=== PATIENT | female | born 1985 | race Caucasian/White ===

== ENCOUNTER 2017-04-15 08:40 | Inpatient (IN) | payer OTHER ==
[~2017-04-15] VITALS: Ht 162.6 cm; Wt 92.1 kg
[2017-04-15] MEDS ORDERED: PRENATAL TABLE1 EAC2 PO (09:12)
[2017-04-15 09:57] LABS: ABSOLUTE BASOPHIL COUNT 0 /CUMM (0.0-0.2); ABSOLUTE EOSINOPHIL COUNT 0 /CUMM (0.0-0.7); ABSOLUTE GRANULOCYTE CT 8.9 /CUMM (1.4-6.5); ABSOLUTE LYMPH COUNT 1.4 /CUMM (1.2-3.4); ABSOLUTE MONOCYTE COUNT 0.6 /CUMM (0.10-0.60); BASOPHIL % 0.2 % (0.0-2.0); EOSINOPHIL % 0.3 % (0-5); GRANULOCYTE % 81.7 % (42.2-75.2); HEMATOCRIT 30.4 % (37-47); MEAN CORPUSCULAR HGB 25.1 PG (27.0-31.0); MEAN CORPUSCULAR HGB CONC 32.4 G/DL (33.0-37.0); MEAN CORPUSCULAR VOLUME 77.5 FL (81.0-99.0); MEAN PLATELET VOLUME 7.7 FL (7.4-10.4); PLATELET COUNT 317 /CUMM (130-400); RBC DISTRIBUTION WIDTH 15.1 % (11.5-14.5); RED BLOOD CELL CT 3.92 /CUMM (4.20-5.40); WHITE BLOOD CELL COUNT 10.9 /CUMM (4.8-10.8)
--- NOTE | 2017-04-15 20:17 | History & Physical ---
General Information and HPI MD Statement: I have seen and personally examined JING BUSTOS and documented this H&P. The patient is a 31 year old female at [40] weeks and [1] days gestation who presented with a chief complaint of [postdates]. Source of Information: police History of Present Illness: 31yo lmp 07/08/17 EDC 04/14/17 at 40w1d for IOL. Poor Miller score needs cervical ripening. care complete and remarkable for +GBS colonization and PCN allergy. 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 EENTM: Reports: no symptoms. Cardiovascular: Reports: no symptoms. Respiratory: Reports: no symptoms. GI: Reports: no symptoms. Genitourinary: Reports: no symptoms. Musculoskeletal: Reports: no symptoms. Skin: Reports: no symptoms. Neurological/Psychological: Reports: no symptoms. Hematologic/Endocrine: Reports: no symptoms. Immunologic/Allergic: Reports: no symptoms. All Other Systems: Reviewed and Negative Exam & Diagnostic Data Last 24 Hrs of Vital Signs/I&O Intake & Output 04/15 1600 / 0800 04/15 0000 Intake Total Output Total Balance Patient 203 lb Weight Obstetric Exam Wgt Gained During : 35 Pelvimetry: gynecoid Dilation (cm): 0 Effacement (%): 0 Station: 0 Membranes: intact Fluid: unknown Fundal Height (cm): 40 Multiple Gestation? No Contractions: none Infant #1 - FHR Baseline: 140 Category: 1 Estimated Weight: 6.5 Presentation: cephalic Patient for Induction? Yes Miller Score Miller Score Response Value Cervix Position: posterior 0 Cervix Consistency: medium 1 Cervix Effacement: 0-30% 0 Cervix Dilation: closed 0 Cervix Station: -2 1 Total 2 Labs Blood Type & Rh: O pos Antibody Screen: neg Hct/Hgb & Platelets #1: 13,39,234 Hct/Hgb & Platelets #2: 12/36/300 Rubella: imm VDRL #1: nr VDRL #2: nr HbsAg: neg HIV #1: neg HIV #2 neg 1 Hr P Group B Strep: positive Initial Ultrasound: wnl Anatomy Ultrasound: wnl Ultrasound for EFW: 6 Genetic Testing: negaticve Assessment/Plan Assessment/Plan: 40+week iol As Ranked By This Provider Problem List: 1. Core Measures/Miscellaneous Venous Thromboembolism VTE Risk Factors: / VTE Contraindications: No Contraindications VTE Diagnosis: No Beta Mahesh Is Beta Mahesh a Home Med? No Antibiotics Is Patient on Antibiotics? Yes
--- NOTE | 2017-04-15 20:18 | Labor & Delivery Summary ---
Delivery Summary Vaginal Delivery: Vaginal: vertex Episiotomy/Lacerations: Episiotomy/Lacerations: laceration Type: 1st degree perineal Repair: 3-0 int Anesthesia: local Placenta: Placenta: spontanteous, normal, 3 vessel Apgars - 1 Min: 9 Apgars - 5 Min: 9
[2017-04-16 02:34] VITALS: BP 139/73
[2017-04-16 08:44] LABS: ABSOLUTE BASOPHIL COUNT 0 /CUMM (0.0-0.2); ABSOLUTE EOSINOPHIL COUNT 0 /CUMM (0.0-0.7); ABSOLUTE GRANULOCYTE CT 14.6 /CUMM (1.4-6.5); ABSOLUTE LYMPH COUNT 1.8 /CUMM (1.2-3.4); ABSOLUTE MONOCYTE COUNT 0.8 /CUMM (0.10-0.60); BASOPHIL % 0.1 % (0.0-2.0); EOSINOPHIL % 0.2 % (0-5); GRANULOCYTE % 84.8 % (42.2-75.2); HEMATOCRIT 31.2 % (37-47); MEAN CORPUSCULAR HGB 25.1 PG (27.0-31.0); MEAN CORPUSCULAR HGB CONC 32.5 G/DL (33.0-37.0); MEAN CORPUSCULAR VOLUME 77.5 FL (81.0-99.0); MEAN PLATELET VOLUME 7.8 FL (7.4-10.4); PLATELET COUNT 293 /CUMM (130-400); RBC DISTRIBUTION WIDTH 15.3 % (11.5-14.5); RED BLOOD CELL CT 4.02 /CUMM (4.20-5.40)
[2017-04-16 08:47] LABS: WHITE BLOOD CELL COUNT 17.3 /CUMM (4.8-10.8)
[2017-04-17] MEDS ORDERED: IBUPROFEN800 M1 PO (08:15)
== END 2017-04-17 12:00 | DRG 775 ==
LOC: GNO 08:40
PROVIDERS: ADMIT Obstetrics & Gynecology
PROC: 10E0XZZ Delivery of Products of Conception, External Approach (ICD-10-PCS; principal; 2017-04-15)
PROC: 0HQ9XZZ Repair Perineum Skin, External Approach (ICD-10-PCS; principal; 2017-04-15)
PROC: 3E033VJ Introduction of Other Hormone into Peripheral Vein, Percutaneous Approach (ICD-10-PCS; principal; 2017-04-15)
DX: O70.0 First degree perineal laceration during delivery (principal); O48.0 Post-term pregnancy; Z37.0 Single live birth; Z3A.40 40 weeks gestation of pregnancy; O99.824 Streptococcus B carrier state complicating childbirth
CPT/HCPCS: GNOP; GNOS; 36415; 81001; J2405; J7120